=== PATIENT | female | born 1965 | race Two or more races ===

== ENCOUNTER 2023-01-20 15:06 | Inpatient (IN) | payer BC ==
[~2023-01-20] VITALS: Ht 170.2 cm; Wt 115.5 kg
[2023-01-20] MEDS ORDERED: FUROSEMIDE 40 MG/4 ML VIAL IV ONE (16:00)
[2023-01-20 16:25] LABS: Basophils # (auto) 0.1 10 ^3/uL (0-0.2); Eosinophils # (auto) 0.1 10 ^3/uL (0-0.8); Eosinophils % (auto) 1.9 % (0.0-7.0); Hematocrit 38.2 % (36.0-46.0); Hemoglobin 12.4 g/dL (12.2-16.2); Lymphocytes # (auto) 1.4 10 ^3/uL (0.4-5.4); Lymphocytes % (auto) 21.2 % (10.0-50.0); Mean Corpuscular Hemoglobin 29.7 pg (28.0-32.0); Mean Corpuscular Hgb Conc. 32.6 g/dL (32.0-36.0); Mean Corpuscular Volume 91.2 fL (80.0-100.0); Monocytes # (auto) 0.6 10 ^3/uL (0-1.3); Monocytes % (auto) 8.3 % (0.0-12.0); Neutrophils # (auto) 4.5 10 ^3/uL (1.6-8.6); Neutrophils % (auto) 67.6 % (37.0-80.0); Nucleated Red Blood Cells % 0.1 %; Red Blood Cells 4.19 10^6/uL (4.0-5.20); Red Cell Distribution Width 16.6 % (11.8-14.3); White Blood Cell 6.7 10^3/uL (4.4-10.8)
[2023-01-20 16:41] LABS: Alanine Aminotransferase 13 U/L (7-40); Albumin 3.9 g/dL (3.2-4.8); Alkaline Phosphatase 74 U/L (46-116); Anion Gap 9 (5-15); Aspartate Aminotransferase 23 U/L (13-40); BUN/Creatinine Ratio 15.7 (10.0-20.0); Blood Urea Nitrogen 17 mg/dL (9-23); Calcium 9.2 mg/dL (8.5-10.1); Carbon Dioxide 27 mmol/L (20-30); Chloride 105 mmol/L (98-107); Glucose 121 mg/dL (74-106); Potassium 4.6 mmol/L (3.5-5.1); Sodium 141 mmol/L (136-145)
[2023-01-20 16:42] LABS: Bilirubin, Total 1.5 mg/dL (0.2-1.0)
[2023-01-20 16:53] LABS: Urine Bacteria NONE SEEN /hpf (None Seen); Urine Blood Negative /uL (Negative); Urine Clarity Clear (Clear); Urine Color Yellow (Yellow); Urine Protein, UAD TRACE (Negative); Urine Specific Gravity 1.017 (1.001-1.035); Urine WBC 1 /hpf (0 - 5); Urine pH 5.5 (5.0-8.0)
[2023-01-20 18:21] LABS: Magnesium 1.9 mg/dL (1.6-2.6)
[2023-01-20 19:27] LABS: COVID19 ANTIGEN SOFIA FIA NEGATIVE (NEGATIVE); Rapid Influenza A Negative (Negative); Rapid Influenza B Negative (Negative)
[2023-01-20] MEDS ORDERED: ONDANSETRON HCL 4 MG/2 ML VIAL IV PRN (20:45)
[2023-01-20] MEDS ORDERED: DOCUSATE SOD 100 MG CAP PO PRN (20:45)
[2023-01-20] MEDS ORDERED: DEXTROSE (50%) 50ML SYRG IV PRN (20:45)
[2023-01-20] MEDS ORDERED: NITROGLYCERIN 0.4 MG SL TAB SL PRN (21:15)
[2023-01-20] MEDS ORDERED: MORPHINE SULFATE INJ 2 MG/ml SYRG IV PRN (21:15)
[2023-01-20] MEDS: InsuLIN REG 1unit/0.01ml Soln (100units/ml) SC SCH (22:00)
[2023-01-20] MEDS: SODIUM CHLOR 0.9% PF (SALINE LOCK) 10ML VIAL/SYR IV SCH (22:00)
[2023-01-20] MEDS: ACCU-CHEK COMFORT CURVE STRIP VI SCH (22:15)
[2023-01-20] MEDS: ATORVASTATIN 20 MG TAB PO SCH (22:52)
[2023-01-20 23:00] VITALS: PULSE 107; RESP 20; O2SAT 96
[2023-01-21] VITALS (9 sets, daily range): BP systolic 91–133; BP diastolic 60–87; PULSE 54–106; RESP 17–20; TEMP 97.4–98.5; O2SAT 91–99
[2023-01-21] MEDS ORDERED: ATOR40TA52 PO (02:13)
[2023-01-21] MEDS ORDERED: METF-370 PO ×2 (02:13→14:05)
[2023-01-21] MEDS ORDERED: POTA-264 (02:13)
[2023-01-21] MEDS ORDERED: SACU1TAB7 PO (02:13)
[2023-01-21] MEDS ORDERED: ASPI1CHW5 PO (02:13)
[2023-01-21] MEDS: SODIUM CHLOR 0.9% PF (SALINE LOCK) 10ML VIAL/SYR IV SCH ×3 (05:45→21:10)
[2023-01-21] MEDS: ACCU-CHEK COMFORT CURVE STRIP VI SCH ×4 (06:42→21:07)
[2023-01-21] MEDS: InsuLIN REG 1unit/0.01ml Soln (100units/ml) SC SCH ×4 (06:44→21:09)
[2023-01-21 06:58] LABS: Alanine Aminotransferase 16 U/L (7-40); Alkaline Phosphatase 69 U/L (46-116); Anion Gap 9 (5-15); Aspartate Aminotransferase 21 U/L (13-40); BUN/Creatinine Ratio 18.1 (10.0-20.0); Blood Urea Nitrogen 19 mg/dL (9-23); Calcium 8.9 mg/dL (8.5-10.1); Carbon Dioxide 28 mmol/L (20-30); Chloride 104 mmol/L (98-107); Glucose 97 mg/dL (74-106); Potassium 4.1 mmol/L (3.5-5.1); Sodium 141 mmol/L (136-145)
[2023-01-21 06:59] LABS: Albumin 3.8 g/dL (3.2-4.8); Bilirubin, Total 1.6 mg/dL (0.2-1.0); Total Protein 6.6 g/dL (5.7-8.2)
[2023-01-21 07:02] LABS: Basophils # (auto) 0.1 10 ^3/uL (0-0.2); Basophils % (auto) 1.2 % (0.0-2.0); Eosinophils # (auto) 0.2 10 ^3/uL (0-0.8); Eosinophils % (auto) 2.7 % (0.0-7.0); Hematocrit 36.3 % (36.0-46.0); Hemoglobin 11.7 g/dL (12.2-16.2); Lymphocytes # (auto) 1.4 10 ^3/uL (0.4-5.4); Lymphocytes % (auto) 21.8 % (10.0-50.0); Mean Corpuscular Hemoglobin 29.4 pg (28.0-32.0); Mean Corpuscular Hgb Conc. 32.4 g/dL (32.0-36.0); Mean Corpuscular Volume 90.8 fL (80.0-100.0); Monocytes # (auto) 0.7 10 ^3/uL (0-1.3); Monocytes % (auto) 10.8 % (0.0-12.0); Neutrophils % (auto) 63.5 % (37.0-80.0); Nucleated Red Blood Cells % 0.1 %; Red Cell Distribution Width 16.8 % (11.8-14.3); White Blood Cell 6.2 10^3/uL (4.4-10.8)
[2023-01-21] MEDS ORDERED: FUROSEMIDE 40 MG/4 ML VIAL IV SCH (10:00)
[2023-01-21] MEDS: ASPirin 81 mg TAB PO SCH (11:15)
[2023-01-21] MEDS: FUROSEMIDE 40 MG/4 ML VIAL IV SCH (17:47)
[2023-01-21] MEDS: ATORVASTATIN 20 MG TAB PO SCH (21:06)
[2023-01-21] MEDS ORDERED: metFORMIN HYDROCHLORIDE 500 MG TAB PO SCH (22:00)
[2023-01-22] VITALS (9 sets, daily range): BP systolic 90–114; BP diastolic 64–82; PULSE 61–112; RESP 17–24; TEMP 97.4–97.9; O2SAT 91–100
[2023-01-22] MEDS: FUROSEMIDE 40 MG/4 ML VIAL IV SCH ×2 (05:08→18:10)
[2023-01-22] MEDS: SODIUM CHLOR 0.9% PF (SALINE LOCK) 10ML VIAL/SYR IV SCH ×3 (05:11→22:21)
[2023-01-22] MEDS: ACCU-CHEK COMFORT CURVE STRIP VI SCH ×4 (06:29→22:21)
[2023-01-22] MEDS: InsuLIN REG 1unit/0.01ml Soln (100units/ml) SC SCH ×4 (06:29→22:30)
[2023-01-22 07:21] LABS: Basophils # (auto) 0.1 10 ^3/uL (0-0.2); Basophils % (auto) 1.2 % (0.0-2.0); Eosinophils # (auto) 0.2 10 ^3/uL (0-0.8); Eosinophils % (auto) 2.7 % (0.0-7.0); Hematocrit 37.9 % (36.0-46.0); Hemoglobin 12.4 g/dL (12.2-16.2); Lymphocytes # (auto) 1.3 10 ^3/uL (0.4-5.4); Lymphocytes % (auto) 18.4 % (10.0-50.0); Mean Corpuscular Hgb Conc. 32.8 g/dL (32.0-36.0); Mean Corpuscular Volume 91.6 fL (80.0-100.0); Monocytes # (auto) 0.7 10 ^3/uL (0-1.3); Monocytes % (auto) 10.2 % (0.0-12.0); Neutrophils # (auto) 4.7 10 ^3/uL (1.6-8.6); Neutrophils % (auto) 67.5 % (37.0-80.0); Nucleated Red Blood Cells % 0.1 %; Red Blood Cells 4.14 10^6/uL (4.0-5.20); Red Cell Distribution Width 16.3 % (11.8-14.3)
[2023-01-22 07:55] LABS: Alanine Aminotransferase 23 U/L (7-40); Alkaline Phosphatase 75 U/L (46-116); Anion Gap 9 (5-15); Aspartate Aminotransferase 23 U/L (13-40); BUN/Creatinine Ratio 17.5 (10.0-20.0); Blood Urea Nitrogen 21 mg/dL (9-23); Calcium 9.2 mg/dL (8.5-10.1); Carbon Dioxide 29 mmol/L (20-30); Chloride 101 mmol/L (98-107); Glucose 114 mg/dL (74-106); Potassium 4.3 mmol/L (3.5-5.1); Sodium 139 mmol/L (136-145)
[2023-01-22 07:56] LABS: Bilirubin, Total 1.3 mg/dL (0.2-1.0); Total Protein 7.1 g/dL (5.7-8.2)
[2023-01-22] MEDS ORDERED: DEXTROSE (50%) 50ML SYRG IV PRN (11:15)
[2023-01-22] MEDS ORDERED: ENOXAPARIN SOD 120 MG/0.8 ML SYRINGE SC ONE (11:15)
[2023-01-22] MEDS: ASPirin 81 mg TAB PO SCH (12:18)
[2023-01-22] MEDS: ATORVASTATIN 20 MG TAB PO SCH (22:10)
[2023-01-22] MEDS: SACUBITRIL-VALSARTAN 24mg/26mg TAB PO SCH (22:19)
[2023-01-22] MEDS: ENOXAPARIN SOD 120 MG/0.8 ML SYRINGE SC SCH (22:22)
[2023-01-23] VITALS (7 sets, daily range): BP systolic 88–107; BP diastolic 52–68; PULSE 83–97; RESP 17–20; TEMP 97.2–98.5; O2SAT 91–95
[2023-01-23] MEDS: SODIUM CHLOR 0.9% PF (SALINE LOCK) 10ML VIAL/SYR IV SCH ×3 (06:38→21:40)
[2023-01-23] MEDS: FUROSEMIDE 40 MG/4 ML VIAL IV SCH ×2 (06:38→18:38)
[2023-01-23] MEDS: EMPAGLIFLOZIN 10 MG TAB PO SCH (06:38)
[2023-01-23] MEDS: ACCU-CHEK COMFORT CURVE STRIP VI SCH ×4 (06:39→21:32)
[2023-01-23] MEDS: InsuLIN REG 1unit/0.01ml Soln (100units/ml) SC SCH ×4 (06:49→21:40)
[2023-01-23 06:58] LABS: Basophils # (auto) 0.1 10 ^3/uL (0-0.2); Basophils % (auto) 1.2 % (0.0-2.0); Eosinophils # (auto) 0.3 10 ^3/uL (0-0.8); Eosinophils % (auto) 3.8 % (0.0-7.0); Hematocrit 38.6 % (36.0-46.0); Hemoglobin 12.7 g/dL (12.2-16.2); Lymphocytes # (auto) 1.4 10 ^3/uL (0.4-5.4); Lymphocytes % (auto) 19.6 % (10.0-50.0); Mean Corpuscular Hemoglobin 30.1 pg (28.0-32.0); Mean Corpuscular Hgb Conc. 32.9 g/dL (32.0-36.0); Mean Corpuscular Volume 91.5 fL (80.0-100.0); Monocytes # (auto) 0.7 10 ^3/uL (0-1.3); Monocytes % (auto) 10.3 % (0.0-12.0); Neutrophils # (auto) 4.5 10 ^3/uL (1.6-8.6); Neutrophils % (auto) 65.1 % (37.0-80.0); Nucleated Red Blood Cells % 0.1 %; Red Blood Cells 4.22 10^6/uL (4.0-5.20); Red Cell Distribution Width 16.8 % (11.8-14.3)
[2023-01-23 07:02] LABS: Anion Gap 8 (5-15); Calcium 8.4 mg/dL (8.7-10.4); Carbon Dioxide 29 mmol/L (20-30); Chloride 102 mmol/L (98-107); Potassium 3.8 mmol/L (3.5-5.1); Sodium 139 mmol/L (136-145)
[2023-01-23 07:08] LABS: BUN/Creatinine Ratio 17.1 (10.0-20.0); Blood Urea Nitrogen 19 mg/dL (9-23); Glucose 107 mg/dL (74-106)
[2023-01-23] MEDS ORDERED: SPIRONOLACTONE 25 MG TAB PO SCH (10:00)
[2023-01-23] MEDS: ASPirin 81 mg TAB PO SCH (11:38)
[2023-01-23] MEDS: SACUBITRIL-VALSARTAN 24mg/26mg TAB PO SCH (11:38)
[2023-01-23] MEDS: ENOXAPARIN SOD 120 MG/0.8 ML SYRINGE SC SCH ×2 (11:39→21:32)
[2023-01-23] MEDS ORDERED: POTASSIUM CHL 20 Meq TABLET PO ONE (13:15)
[2023-01-23] MEDS ORDERED: MAGNESIUM SULFATE 1GM/100ML 100 ML IV ONE (13:15)
[2023-01-23] MEDS: HYDROcodone-ACET 5/325MG TAB PO PRN ×2 (18:39→23:36)
[2023-01-23 18:41] LABS: Potassium 4.1 mmol/L (3.5-5.1)
[2023-01-23 18:48] LABS: Magnesium 2.5 mg/dL (1.6-2.6)
[2023-01-23 21:17] LABS: Amphetamine Screen, Urine Neg (NEGATIVE); Barbiturate Scree,Urine Neg (NEGATIVE); Benzodiazephine Screen, Urine Neg (NEGATIVE); Cocaine Screen, Urine Neg (NEGATIVE); Opiate Scree,Urine Neg (NEGATIVE); Phencyclidine Screen, Urine Neg (NEGATIVE)
[2023-01-23 21:18] LABS: Cannabinoid Screen, Urine Neg (NEGATIVE)
[2023-01-23] MEDS: ATORVASTATIN 20 MG TAB PO SCH (21:31)
[2023-01-24] VITALS (7 sets, daily range): BP systolic 93–101; BP diastolic 39–67; PULSE 74–99; RESP 19–20; TEMP 97.1–97.7; O2SAT 90–97
[2023-01-24] MEDS: SODIUM CHLOR 0.9% PF (SALINE LOCK) 10ML VIAL/SYR IV SCH ×3 (06:19→21:10)
[2023-01-24] MEDS: EMPAGLIFLOZIN 10 MG TAB PO SCH (06:20)
[2023-01-24] MEDS: FUROSEMIDE 40 MG/4 ML VIAL IV SCH ×2 (06:20→17:21)
[2023-01-24 06:24] LABS: Basophils # (auto) 0.1 10 ^3/uL (0-0.2); Basophils % (auto) 1.3 % (0.0-2.0); Eosinophils # (auto) 0.2 10 ^3/uL (0-0.8); Eosinophils % (auto) 3.5 % (0.0-7.0); Hematocrit 37.1 % (36.0-46.0); Hemoglobin 11.9 g/dL (12.2-16.2); Lymphocytes # (auto) 1.3 10 ^3/uL (0.4-5.4); Lymphocytes % (auto) 21.3 % (10.0-50.0); Mean Corpuscular Hemoglobin 29.8 pg (28.0-32.0); Mean Corpuscular Volume 93.1 fL (80.0-100.0); Monocytes # (auto) 0.7 10 ^3/uL (0-1.3); Monocytes % (auto) 11.6 % (0.0-12.0); Neutrophils # (auto) 3.7 10 ^3/uL (1.6-8.6); Neutrophils % (auto) 62.3 % (37.0-80.0); Nucleated Red Blood Cells % 0.2 %; Red Blood Cells 3.98 10^6/uL (4.0-5.20); Red Cell Distribution Width 16.5 % (11.8-14.3)
[2023-01-24] MEDS: ACCU-CHEK COMFORT CURVE STRIP VI SCH ×4 (06:30→21:10)
[2023-01-24] MEDS: InsuLIN REG 1unit/0.01ml Soln (100units/ml) SC SCH ×4 (06:31→21:18)
[2023-01-24 06:34] LABS: Alanine Aminotransferase 19 U/L (7-40); Albumin 3.9 g/dL (3.2-4.8); Alkaline Phosphatase 69 U/L (46-116); Anion Gap 6 (5-15); Aspartate Aminotransferase 18 U/L (13-40); BUN/Creatinine Ratio 14.4 (10.0-20.0); Bilirubin, Total 0.7 mg/dL (0.2-1.0); Blood Urea Nitrogen 17 mg/dL (9-23); CRP High Sensitivity 0.56 mg/dL (<1.0); Calcium 8.6 mg/dL (8.5-10.1); Carbon Dioxide 30 mmol/L (20-30); Chloride 102 mmol/L (98-107); Glucose 104 mg/dL (74-106); Sodium 138 mmol/L (136-145); Total Protein 6.9 g/dL (5.7-8.2)
[2023-01-24 06:52] LABS: Magnesium 2.5 mg/dL (1.6-2.6)
[2023-01-24] MEDS: ENOXAPARIN SOD 120 MG/0.8 ML SYRINGE SC SCH ×2 (09:02→21:12)
[2023-01-24] MEDS ORDERED: MAGNESIUM OXIDE 400 MG TAB PO ONE (10:45)
[2023-01-24] MEDS: ATORVASTATIN 20 MG TAB PO SCH (21:10)
[2023-01-25] VITALS (7 sets, daily range): BP systolic 96–146; BP diastolic 58–77; PULSE 64–107; RESP 18–22; TEMP 97.2–98.3; O2SAT 92–100
[2023-01-25] MEDS: HYDROcodone-ACET 5/325MG TAB PO PRN (02:27)
[2023-01-25 06:24] LABS: Anion Gap 2 (5-15); Carbon Dioxide 33 mmol/L (20-30); Chloride 102 mmol/L (98-107); Potassium 4.1 mmol/L (3.5-5.1); Sodium 137 mmol/L (136-145)
[2023-01-25 06:26] LABS: Calcium 8.5 mg/dL (8.7-10.4)
[2023-01-25 06:30] LABS: BUN/Creatinine Ratio 16.5 (10.0-20.0); Blood Urea Nitrogen 18 mg/dL (9-23); Glucose 105 mg/dL (74-106)
[2023-01-25 06:31] LABS: Magnesium 2.5 mg/dL (1.6-2.6)
[2023-01-25] MEDS: SODIUM CHLOR 0.9% PF (SALINE LOCK) 10ML VIAL/SYR IV SCH ×3 (06:44→22:00)
[2023-01-25] MEDS: FUROSEMIDE 40 MG/4 ML VIAL IV SCH ×2 (06:45→17:37)
[2023-01-25] MEDS: EMPAGLIFLOZIN 10 MG TAB PO SCH (06:45)
[2023-01-25] MEDS: ACCU-CHEK COMFORT CURVE STRIP VI SCH ×4 (06:51→21:10)
[2023-01-25] MEDS: InsuLIN REG 1unit/0.01ml Soln (100units/ml) SC SCH ×4 (06:51→21:10)
[2023-01-25] MEDS: MAGNESIUM OXIDE 400 MG TAB PO SCH (09:53)
[2023-01-25] MEDS: ATORVASTATIN 20 MG TAB PO SCH (21:09)
[2023-01-25] MEDS ORDERED: SODIUM CHLORIDE 0.9% 1,000 ML IV ONE (22:00)
[2023-01-26] VITALS (8 sets, daily range): BP systolic 94–122; BP diastolic 56–80; PULSE 40–104; RESP 18–22; TEMP 97.3–98.6; O2SAT 83–98
[2023-01-26] MEDS: FUROSEMIDE 40 MG/4 ML VIAL IV SCH ×2 (05:20→17:48)
[2023-01-26] MEDS: EMPAGLIFLOZIN 10 MG TAB PO SCH (05:21)
[2023-01-26] MEDS: ACCU-CHEK COMFORT CURVE STRIP VI SCH ×4 (05:23→21:52)
[2023-01-26] MEDS: InsuLIN REG 1unit/0.01ml Soln (100units/ml) SC SCH ×4 (05:23→21:59)
[2023-01-26] MEDS: SODIUM CHLOR 0.9% PF (SALINE LOCK) 10ML VIAL/SYR IV SCH ×3 (05:57→21:52)
[2023-01-26 07:14] LABS: Prothrombin Time 10.5 sec (9.3-11.8)
[2023-01-26] MEDS: HYDROcodone-ACET 5/325MG TAB PO PRN (09:03)
[2023-01-26] MEDS: MAGNESIUM OXIDE 400 MG TAB PO SCH (09:03)
[2023-01-26] MEDS: ATORVASTATIN 20 MG TAB PO SCH (21:52)
[2023-01-27] MEDS: ACETAMINOPHEN 325 MG TAB PO PRN (04:44)
[2023-01-27 05:00] VITALS: BP 96/61; PULSE 96; RESP 22; TEMP 97.7; O2SAT 96
[2023-01-27] MEDS: SODIUM CHLOR 0.9% PF (SALINE LOCK) 10ML VIAL/SYR IV SCH ×3 (05:31→21:42)
[2023-01-27] MEDS: EMPAGLIFLOZIN 10 MG TAB PO SCH (05:31)
[2023-01-27] MEDS: FUROSEMIDE 40 MG/4 ML VIAL IV SCH ×2 (05:31→18:00)
[2023-01-27] MEDS: ACCU-CHEK COMFORT CURVE STRIP VI SCH ×4 (06:05→21:42)
[2023-01-27] MEDS: InsuLIN REG 1unit/0.01ml Soln (100units/ml) SC SCH ×4 (06:05→21:55)
[2023-01-27 07:12] LABS: Calcium 8.7 mg/dL (8.5-10.1); Chloride 100 mmol/L (98-107); Potassium 3.9 mmol/L (3.5-5.1); Sodium 138 mmol/L (136-145)
[2023-01-27 07:13] LABS: Anion Gap 6 (5-15); Carbon Dioxide 32 mmol/L (20-30)
[2023-01-27 07:18] LABS: BUN/Creatinine Ratio 15.3 (10.0-20.0); Blood Urea Nitrogen 17 mg/dL (9-23); Glucose 98 mg/dL (74-106)
[2023-01-27 08:00] VITALS: PULSE 108; PULSE 95; RESP 18
[2023-01-27 09:00] VITALS: BP 116/85; PULSE 93; RESP 20; TEMP 97.7; O2SAT 96
[2023-01-27] MEDS: MAGNESIUM OXIDE 400 MG TAB PO SCH (11:13)
[2023-01-27 13:00] VITALS: BP 115/79; PULSE 99; RESP 22; TEMP 97.8; O2SAT 94
[2023-01-27] MEDS ORDERED: fentaNYL CITRATE 100 MCG/2 ML VL ONE (14:29)
[2023-01-27] MEDS ORDERED: VANCOMYCIN HCL 1000 MG VL ONE ×2 (14:29→14:30)
[2023-01-27] MEDS ORDERED: LIDOCAINE 2%HCL (LOCAL ANESTH.) INJ 20ML MDV ONE (14:30)
[2023-01-27] MEDS ORDERED: MIDAZOLAM HCL 2MG/2ML 2ml VIAL (1mg/ml) ONE (14:30)
[2023-01-27] MEDS ORDERED: VANCOMYCIN 1GM/250ML 250 ML IV ONE (14:30)
[2023-01-27] MEDS ORDERED: IODIXANOL 320MG/ML 100ML BTL IV ONE (14:36)
[2023-01-27] MEDS ORDERED: FUROSEMIDE 20 MG/2 ML VIAL ONE ×2 (15:29→16:34)
[2023-01-27] MEDS ORDERED: GELATIN 1 SPONGE SIZE 100 TOP ONE (17:15)
[2023-01-27] MEDS ORDERED: GELATIN 1 SPONGE SIZE 50 TOP ONE (17:15)
[2023-01-27 20:00] VITALS: PULSE 100; PULSE 101; RESP 20
[2023-01-27] MEDS: ATORVASTATIN 20 MG TAB PO SCH (21:49)
[2023-01-27] MEDS: DOXYCYCLINE 100 MG TAB/CAP PO SCH (21:50)
[2023-01-27] MEDS ORDERED: DOXYCYCLINE 100 MG TAB/CAP ONE (21:50)
[2023-01-27 22:00] VITALS: BP 117/57; PULSE 99; RESP 20; TEMP 98.8; O2SAT 95
[2023-01-28] MEDS: HYDROcodone-ACET 5/325MG TAB PO PRN ×2 (00:35→15:20)
[2023-01-28] MEDS ORDERED: VANCOMYCIN 1GM/250ML 250 ML IV SCH (03:00)
[2023-01-28 05:00] VITALS: BP 127/80; PULSE 94; RESP 20; TEMP 98.3; O2SAT 95
[2023-01-28] MEDS: SODIUM CHLOR 0.9% PF (SALINE LOCK) 10ML VIAL/SYR IV SCH ×3 (06:03→22:00)
[2023-01-28] MEDS: EMPAGLIFLOZIN 10 MG TAB PO SCH (06:03)
[2023-01-28] MEDS: FUROSEMIDE 40 MG/4 ML VIAL IV SCH ×2 (06:03→17:29)
[2023-01-28] MEDS: InsuLIN REG 1unit/0.01ml Soln (100units/ml) SC SCH ×4 (06:04→22:17)
[2023-01-28] MEDS: ACCU-CHEK COMFORT CURVE STRIP VI SCH ×4 (06:04→22:13)
[2023-01-28 07:17] LABS: Calcium 8.3 mg/dL (8.7-10.4); Chloride 100 mmol/L (98-107); Potassium 4.4 mmol/L (3.5-5.1); Sodium 135 mmol/L (136-145)
[2023-01-28 07:18] LABS: Anion Gap 3 (5-15); Carbon Dioxide 32 mmol/L (20-30)
[2023-01-28 07:23] LABS: BUN/Creatinine Ratio 13.9 (10.0-20.0); Blood Urea Nitrogen 15 mg/dL (9-23); Glucose 108 mg/dL (74-106)
[2023-01-28 08:00] VITALS: BP 143/65; PULSE 101; PULSE 65; PULSE 96; RESP 20; RESP 22; TEMP 98.1; O2SAT 92
[2023-01-28] MEDS ORDERED: SACUBITRIL-VALSARTAN 24mg/26mg TAB PO ONE ×2 (09:48→21:58)
[2023-01-28] MEDS ORDERED: AMIODARONE HCL 200 MG TAB ONE ×2 (09:49→21:51)
[2023-01-28] MEDS: MAGNESIUM OXIDE 400 MG TAB PO SCH (09:51)
[2023-01-28] MEDS: AMIODARONE HCL 200 MG TAB PO SCH ×2 (09:51→22:05)
[2023-01-28] MEDS: SACUBITRIL-VALSARTAN 24mg/26mg TAB PO SCH ×2 (09:52→22:02)
[2023-01-28] MEDS: DOXYCYCLINE 100 MG TAB/CAP PO SCH ×2 (09:52→22:03)
[2023-01-28] MEDS: CARVEDILOL 3.125 MG TAB PO SCH ×2 (09:58→22:00)
[2023-01-28 12:00] VITALS: BP 98/52; PULSE 87; RESP 21; TEMP 98.1; O2SAT 94
[2023-01-28] MEDS ORDERED: VANCOMYCIN 1GM/250ML 250 ML IV ONE (12:00)
[2023-01-28 15:41] LABS: Base Excess 6.4 mmol/L (-2.0-2.0)
[2023-01-28 16:00] VITALS: BP 106/56; PULSE 73; RESP 18; TEMP 97.8; O2SAT 99
[2023-01-28 20:00] VITALS: PULSE 75; PULSE 87; RESP 17; O2SAT 95
[2023-01-28] MEDS ORDERED: CARVEDILOL 3.125 MG TAB ONE (21:51)
[2023-01-28 22:00] VITALS: BP 95/53; PULSE 75; RESP 17; TEMP 98.3; O2SAT 95
[2023-01-28] MEDS: ATORVASTATIN 20 MG TAB PO SCH (22:03)
[2023-01-29] VITALS (7 sets, daily range): BP systolic 94–126; BP diastolic 46–63; PULSE 74–89; RESP 16–20; TEMP 97.7–98.5; O2SAT 94–100
[2023-01-29] MEDS: HYDROcodone-ACET 5/325MG TAB PO PRN ×2 (00:08→21:51)
[2023-01-29] MEDS: FUROSEMIDE 40 MG/4 ML VIAL IV SCH ×2 (05:43→18:35)
[2023-01-29 06:20] LABS: Calcium 8.2 mg/dL (8.7-10.4); Chloride 101 mmol/L (98-107); Potassium 4.2 mmol/L (3.5-5.1); Sodium 137 mmol/L (136-145)
[2023-01-29 06:21] LABS: Anion Gap 4 (5-15); Carbon Dioxide 32 mmol/L (20-30)
[2023-01-29] MEDS: EMPAGLIFLOZIN 10 MG TAB PO SCH (06:21)
[2023-01-29] MEDS: SODIUM CHLOR 0.9% PF (SALINE LOCK) 10ML VIAL/SYR IV SCH ×3 (06:21→21:45)
[2023-01-29 06:26] LABS: BUN/Creatinine Ratio 17.1 (10.0-20.0); Blood Urea Nitrogen 18 mg/dL (9-23); Glucose 147 mg/dL (74-106); Magnesium 2.3 mg/dL (1.6-2.6)
[2023-01-29] MEDS: InsuLIN REG 1unit/0.01ml Soln (100units/ml) SC SCH ×4 (06:26→21:46)
[2023-01-29] MEDS: ACCU-CHEK COMFORT CURVE STRIP VI SCH ×4 (06:26→21:46)
[2023-01-29] MEDS ORDERED: AMIODARONE HCL 200 MG TAB ONE ×2 (10:10→21:32)
[2023-01-29] MEDS ORDERED: CARVEDILOL 3.125 MG TAB ONE (10:10)
[2023-01-29] MEDS ORDERED: SACUBITRIL-VALSARTAN 24mg/26mg TAB PO ONE ×2 (10:10→21:31)
[2023-01-29] MEDS: SACUBITRIL-VALSARTAN 24mg/26mg TAB PO SCH ×2 (10:11→21:45)
[2023-01-29] MEDS: AMIODARONE HCL 200 MG TAB PO SCH ×2 (10:12→21:45)
[2023-01-29] MEDS: DOXYCYCLINE 100 MG TAB/CAP PO SCH ×2 (10:12→21:45)
[2023-01-29] MEDS: CARVEDILOL 3.125 MG TAB PO SCH ×2 (10:12→21:47)
[2023-01-29] MEDS: MAGNESIUM OXIDE 400 MG TAB PO SCH (10:12)
[2023-01-29] MEDS: ATORVASTATIN 20 MG TAB PO SCH (21:45)
[2023-01-30 05:00] VITALS: BP 92/50; PULSE 71; RESP 18; TEMP 98.3; O2SAT 99
[2023-01-30] MEDS: FUROSEMIDE 40 MG/4 ML VIAL IV SCH (05:44)
[2023-01-30] MEDS: SODIUM CHLOR 0.9% PF (SALINE LOCK) 10ML VIAL/SYR IV SCH (05:51)
[2023-01-30] MEDS: EMPAGLIFLOZIN 10 MG TAB PO SCH (06:06)
[2023-01-30] MEDS: ACETAMINOPHEN 325 MG TAB PO PRN (06:06)
[2023-01-30] MEDS: ACCU-CHEK COMFORT CURVE STRIP VI SCH ×2 (06:06→11:30)
[2023-01-30] MEDS: InsuLIN REG 1unit/0.01ml Soln (100units/ml) SC SCH ×2 (06:11→11:30)
[2023-01-30 08:00] VITALS: PULSE 65; PULSE 93; RESP 18; O2SAT 98
[2023-01-30] MEDS ORDERED: ATOR10TA PO (09:53)
[2023-01-30] MEDS ORDERED: CAR3125T PO (09:53)
[2023-01-30] MEDS ORDERED: DOX100T PO (09:53)
[2023-01-30] MEDS ORDERED: AMIO200T33 PO (09:53)
[2023-01-30] MEDS ORDERED: EMPA1TAB PO (09:53)
[2023-01-30] MEDS: CARVEDILOL 3.125 MG TAB PO SCH (10:00)
[2023-01-30] MEDS: AMIODARONE HCL 200 MG TAB PO SCH (10:00)
[2023-01-30] MEDS: MAGNESIUM OXIDE 400 MG TAB PO SCH (10:48)
[2023-01-30] MEDS: DOXYCYCLINE 100 MG TAB/CAP PO SCH (10:49)
[2023-01-30] MEDS: SACUBITRIL-VALSARTAN 24mg/26mg TAB PO SCH (10:49)
[2023-01-30 11:15] VITALS: BP 99/63; PULSE 65; RESP 18; TEMP 98.6; O2SAT 98
[2023-01-30 12:10] VITALS: BP 100/63; PULSE 64; RESP 18; TEMP 98.3; O2SAT 95
== END 2023-01-30 13:54 | disposition home or self-care (01) | DRG 276 ==
LOC: ER 15:06 → TELE-EAST 21:09 → TELE 21:09 → TELE-EAST 23:45
PROVIDERS: ADMIT Internal Medicine Geriatric Medicine; ATTEND Internal Medicine Geriatric Medicine
PROC: 0JH608Z Insertion of Defibrillator Generator into Chest Subcutaneous Tissue and Fascia, Open Approach (ICD-10-PCS; principal; 2023-01-27)
PROC: 02H63KZ Insertion of Defibrillator Lead into Right Atrium, Percutaneous Approach (ICD-10-PCS; 2023-01-27)
PROC: 02HL3KZ Insertion of Defibrillator Lead into Left Ventricle, Percutaneous Approach (ICD-10-PCS; 2023-01-27)
PROC: B517YZZ Fluoroscopy of Left Subclavian Vein using Other Contrast (ICD-10-PCS; 2023-01-27)
DX: I49.5 Sick sinus syndrome (principal); I21.A1 Myocardial infarction type 2; J96.21 Acute and chronic respiratory failure with hypoxia; I50.43 Acute on chronic combined systolic (congestive) and diastolic (congestive) heart failure; I47.20 Ventricular tachycardia, unspecified; I11.0 Hypertensive heart disease with heart failure; E78.5 Hyperlipidemia, unspecified; E66.01 Morbid (severe) obesity due to excess calories; I42.8 Other cardiomyopathies; I48.0 Paroxysmal atrial fibrillation; Z20.822 Contact with and (suspected) exposure to COVID-19; E11.9 Type 2 diabetes mellitus without complications; I44.7 Left bundle-branch block, unspecified; F15.10 Other stimulant abuse, uncomplicated; F17.200 Nicotine dependence, unspecified, uncomplicated; I95.9 Hypotension, unspecified; I25.2 Old myocardial infarction; Z90.710 Acquired absence of both cervix and uterus; Z83.3 Family history of diabetes mellitus; Z82.49 Family history of ischemic heart disease and other diseases of the circulatory system; Z68.39 Body mass index [BMI] 39.0-39.9, adult; Z79.84 Long term (current) use of oral hypoglycemic drugs; Z95.810 Presence of automatic (implantable) cardiac defibrillator
CPT/HCPCS: 36415; 36600; 71045; 71046; 80048; 80053; 80307; 81001; 82805; 82962; 83735; 83880; 84132; 84484; 85025; 85610; 86141; 87081; 87426; 87804; 93005; 93306; 93925; 93970; 96374; 99152; 99153; 99291; G0378; J1815; J2250; Q9967